=== PATIENT | male | born 1985 | race Caucasian/White ===

== ENCOUNTER 2016-12-04 15:32 | Emergency (ER) | payer OTHER ==
[2016-12-04] MEDS ORDERED: KETOROLAC TROMETHAMINE 60 MG/2 ML VIAL IM ONE (16:01)
[2016-12-04] MEDS ORDERED: NALBUPHINE HCL 10 MG/1 ML IM ONE (16:02)
--- NOTE | 2016-12-04 16:09 | ED Physician Documentation ---
Lower Extremity Injury - HISTORIAN Historian: patient - HPI Stated Complaint: fall-right foot pain Chief Complaint: Lower Extremity Injury Onset: minutes Severity: severe Context: fall (off bottom step. ) Modifying Factors:: pain on movement - ROS CONST: no problems CVS/RESP: none GI/: denies: nausea, vomiting MS/SKIN/LYMPH: foot swelling. denies: neck pain, back pain, ankle swelling NEURO: denies: headache, head injury, anxiety - PAST HX Past History: none Allergies/Adverse Reactions: Allergies Allergy/AdvReac Type Severity Reaction Status Date / Time No Known Allergies Allergy Verified 12/04/16 15:39 Home Medications: Ambulatory Orders Medication Instructions Recorded NK [NK] 12/04/16 - SOCIAL HX Smoking History: non-smoker - FAMILY HX Family History: none - VITAL SIGNS Vital Signs: Vital Signs Temp Pulse Resp BP Pulse Ox 82 16 138/78 98 12/04/16 16:20 12/04/16 16:20 12/04/16 16:20 12/04/16 16:20 - REVIEWED ASSESSMENTS Nursing Assessment Reviewed: Yes Vitals Reviewed: Yes Progress - Progress Progress: 4th proximal metatarsal fracture, questionable proximal 3rd metatarsal fracture. Radiology read as negative. Likely due to signficant edema. Patient cannot bear weight due to edema. Will place in boot, refer to ortho for re-evaluation and additional xrays. Ice and elevation. ED Results Lab/Radiology - Orders Orders: ED Orders Category Date Time Status Walking Boot 1T Care 12/04/16 16:02 Active FOOT 3 VIEWS OR MORE [RAD] Stat Exams 12/04/16 Completed Ketorolac Tromethamine [Toradol] Med 12/04/16 16:01 Discontinued 60 mg IM NOW ONE Nalbuphine HCl [Nubain] Med 12/04/16 16:02 Discontinued 10 mg IM NOW ONE Lower Extremities Injury Phy - Physical Exam General Appearance: moderate distress Hips: bilateral hip: non-tender, normal inspection, normal range of motion, no evidence of injury Legs: bilateral: non-tender, normal inspection, normal range of motion, no evidence of injury Knees: bilateral: non-tender, normal inspection, normal range of motion, no evidence of injury Ankle: bilateral: non-tender, normal inspection, normal range of motion, no evidence of injury Foot: right foot: deformity, limited range of motion, pain, soft tissue tenderness, swelling (right foot over proximal 3 and 4 metatarsal,unable to bear weight), left foot: non-tender, normal inspection, normal range of motion, no evidence of injury Gait: unable to bear weight Neuro/Vascular/Tendon: no vascular compromise, motor nml, sensation nml, ROM nml Head/ENT: nml inspection Resp/CVS: chest non-tender, breath sounds nml, heart sounds nml, no resp. distress, lungs clear, reg. rate & rhythm Discharge Clincal Impression: Fracture of 4th metatarsal Qualifiers: Encounter type: initial encounter Fracture type: closed Fracture alignment: nondisplaced Laterality: right Qualified Code(s): S92.344A - Nondisplaced fracture of fourth metatarsal bone, right foot, initial encounter for closed fracture Referrals: Primary Doctor,No [Primary Care Provider] - 2 Days Additional Instructions: Rest ice elevation No weight bearing on Right Foot! Wear the walking boot at all times. You may remove it to sleep and shower. No weight bearing on the Right foot! Make a follow up appointment with orthopedics - see attachment Home Medications: Ambulatory Orders NK [NK] 12/04/16 Condition: Stable Disposition: 01 HOME, SELF-CARE Decision to Admit: NO Decision Time: 16:08
[2016-12-04 16:25] VITALS: BP 138/78
--- NOTE | 2016-12-04 18:41 | Diagnostic Imaging Report ---
WALESKA YUSUF (DENNISE) - ER [facility] [address] [facility] [address] Report Submission Date: Dec 04, 2016 4:08:21 PM CDT Patient Study Name: ANGIE ALVARADO Date: Dec 04, 2016 3:44:05 PM CDT Modality Type: CR Gender: M Description: LOWER EXTREMITY : 87 Institution: [facility] Physician: WALESKA YUSUF) - ER Right foot 3 views History: Pain and swelling after fall Findings: Lateral midfoot soft tissue swelling is present without fracture, dislocation, arthropathy, or focal bone lesion. Electronically signed on Dec 04, 2016 4:08:21 PM CDT by: Santos BROWN
== END 2016-12-04 16:20 | disposition home or self-care (01) ==
LOC: ED 15:32
DX: S92.344A Nondisplaced fracture of fourth metatarsal bone, right foot, initial encounter for closed fracture (principal); W19.XXXA Unspecified fall, initial encounter; Y93.9 Activity, unspecified; Y99.9 Unspecified external cause status
CPT/HCPCS: 73630; J1885; J2300; 96372; 99284; L4360

== ENCOUNTER 2017-03-29 09:09 | Emergency (ER) | payer OTHER ==
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
[2017-03-29 09:39] VITALS: BP 149/97
== END 2017-03-29 09:37 | disposition home or self-care (01) ==
LOC: ED 09:09
DX: J02.0 Streptococcal pharyngitis (principal)
CPT/HCPCS: 87880; 99283

== ENCOUNTER 2018-10-17 15:54 | Emergency (ER) | payer OTHER ==
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
[2018-10-17] MEDS ORDERED: KETOROLAC TROMETHAMINE 60 MG/2 ML VIAL IM ONE (16:10)
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
[2018-10-17 18:20] VITALS: BP 117/76
== END 2018-10-17 18:09 | disposition home or self-care (01) ==
LOC: ED 15:54
DX: Z04.1 Encounter for examination and observation following transport accident (principal); M25.511 Pain in right shoulder; M25.551 Pain in right hip; M25.521 Pain in right elbow; V48.6XXA Car passenger injured in noncollision transport accident in traffic accident, initial encounter; Y93.89 Activity, other specified; Y92.410 Unspecified street and highway as the place of occurrence of the external cause
CPT/HCPCS: 72170; 73030; 73080; 96372; 99284; 99285; J1885

== ENCOUNTER 2018-10-19 10:05 | Emergency (ER) | payer OTHER ==
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
[2018-10-19 12:05] VITALS: BP 124/85
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
== END 2018-10-19 12:03 | disposition home or self-care (01) ==
LOC: ED 10:05
DX: S43.401A Unspecified sprain of right shoulder joint, initial encounter (principal); V48.6XXA Car passenger injured in noncollision transport accident in traffic accident, initial encounter; Y93.89 Activity, other specified; Y92.410 Unspecified street and highway as the place of occurrence of the external cause
CPT/HCPCS: 73200; 99283; 99284